=== PATIENT | male | born 1995 ===

== ENCOUNTER 2017-12-16 23:21 | Emergency (ER) | payer MEDICAID, OTHER ==
[2017-12-16 23:33] VITALS: TEMP 99
[2017-12-16] MEDS ORDERED: THIAMINE 100 MG TAB PO ONE (23:38)
[2017-12-16 23:59] LABS: ALBUMIN 4.7 gm/dl (3.4-5.0); BILIRUBIN,DIRECT 0.2 mg/dl (0.0-0.2); BILIRUBIN,TOTAL 0.5 mg/dl (0.2-1.0); CALCIUM 9.6 mg/dl (8.5-10.1); CARBON DIOXIDE 25.6 mEq/L (21-32); CREATININE 1.39 mg/dl (0.80-1.30); POTASSIUM 3.2 mMol/L (3.5-5.1); TOTAL PROTEIN 8.3 gm/dl (6.4-8.2)
[2017-12-17 00:01] LABS: ALCOHOL 0.026 gm/dl (0.000-0.08)
[2017-12-17 00:07] LABS: BASOPHILS % (AUTO) 1 % (0-3); EOSINOPHILS % (AUTO) 0 % (0-9); HEMATOCRIT 48 % (39-53); LYMPHOCYTES % (AUTO) 13.54 % (10-50); MEAN CORPUSCULAR HEMOGLOBIN 30.5 pg (27.0-32.0); MEAN CORPUSCULAR HGB CONC 33.2 gm/dl (32.0-36.0); MEAN CORPUSCULAR VOLUME 92 fL (80-100); MONOCYTES % (AUTO) 9.7 % (0-12); NEUTROPHILS % (AUTO) 75.4 % (37-80)
[2017-12-17 00:09] LABS: AMPHETAMINES NEGATIVE (NEGATIVE); BARBITUATES NEGATIVE (NEGATIVE); BENZODIAZEPINES NEGATIVE (NEGATIVE); CANNABINOL(THC) POSITIVE (NEGATIVE); COCAINE(COC) POSITIVE (NEGATIVE); METHADONE NEGATIVE (NEGATIVE); OPIATES(OP13) NEGATIVE (NEGATIVE); TRICYCLIC ANTIDEPRESSANTS NEGATIVE (NEGATIVE)
[2017-12-17 00:10] LABS: METHAMPHETAMINES POSITIVE (NEGATIVE); OXYCODONE(OXY) NEGATIVE (NEGATIVE); PROPOXYPHENE(PPX) NEGATIVE (NEGATIVE)
[2017-12-17 01:28] VITALS: RESP 15; O2SAT 99
[2017-12-17] MEDS ORDERED: THIAMINE 100 MG TAB ONE (05:31)
[2017-12-17 06:19] VITALS: BP 106/53; PULSE 84
== END 2017-12-17 06:00 | disposition home or self-care (01) | DRG 897 ==
LOC: ED 23:21
DX: F15.10 Other stimulant abuse, uncomplicated (principal); F14.10 Cocaine abuse, uncomplicated; F12.10 Cannabis abuse, uncomplicated
CPT/HCPCS: 36415; 80048; 80076; 80305; 80307; 85025; 99283; 99284; A9270-GY